=== PATIENT | male | born 2000 | race Caucasian/White ===

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

== ENCOUNTER 2020-08-14 21:23 | Inpatient (IN) ==
[2020-08-14 22:10] LABS: Basophils % 0.5 %; Eosinophils # 0.1 K/mcL (0.0-0.6); Eosinophils % 1.1 %; Hematocrit 40.2 % (37.5-50.1); Hemoglobin 14.1 g/dL (12.9-16.9); Immature Granulocytes % 0.3 % (0-4); Lymphocytes % 31.7 %; Mean Corpuscular HGB Conc 35.1 g/dL (31.6-35.5); Mean Corpuscular Hemoglobin 30.5 pg (28.0-33.3); Mean Platelet Volume 9.6 fL (9.4-12.4); Monocytes # 0.7 K/mcL (0.0-1.3); Monocytes % 10.3 %; Neutrophils # 3.6 K/mcL (1.6-8.9); Platelet Count 268 K/mcL (140-400); Red Blood Count 4.62 M/mcL (4.19-5.50); Segmented Neutrophils % 56.1 %; White Blood Count 6.3 K/mcL (4.3-11.1)
[2020-08-14 22:31] LABS: Acetaminophen < 10 mcg/mL (10-20); BUN/Creatinine Ratio 12 (6-26); Blood Urea Nitrogen 11 mg/dL (6-20); Calcium 9.5 mg/dL (8.6-10.3); Carbon Dioxide 27 mEq/L (23-29); Chloride 107 mEq/L (98-107); Chol/HDL Ratio 3.1 (0-4.9); Cholesterol 119 mg/dL (< 200); Ethanol < 10 mg/dL (Less than 10); Glucose 76 mg/dL (70-105); HDL Cholesterol 38 mg/dL (40-59); LDL Cholesterol,Calculated 66 mg/dL (< 100); Osmolality,Calculated 298 (280-300); Potassium 3.9 mEq/L (3.5-5.1); Salicylate < 2.5 mg/dL (15.0-30.0); Sodium 145 mEq/L (136-145); Triglycerides 75 mg/dL (< 150); eGFR For African Americans > 60; eGFR For Non-African Americans > 60
[2020-08-14 22:54] LABS: Estimated Average Glucose 91 mg/dl; Hemoglobin A1C 4.8 %
[2020-08-14 23:40] LABS: Amphetamine Screen,Urine Negative ng/mL (Cutoff=1000); Barbiturate Screen,Urine Negative ng/mL (Cutoff=200); Benzodiazepines Screen,Urine Negative ng/mL (Cutoff=200); Cannabinoid Screen,Urine Positive ng/mL (Cutoff = 50); Cocaine Screen,Urine Negative ng/mL (Cutoff= 300); Opiate Screen,Urine Negative ng/mL (Cutoff=300); Phencyclidine Screen,Urine Negative ng/mL (Cutoff=25)
[2020-08-14 23:45] LABS: Bacteria,Urine Moderate per hpf (None-Few); Bilirubin,Urine Negative (Negative); Blood,Urine Negative (Negative); Clarity,Urine Ex.Turbid (Clear); Color,Urine Yellow (Yellow); Glucose,Urine (UA) Normal (Normal); Ketones,Urine Negative (Negative); Leukocyte Esterase,Urine Negative (Negative); Mucus,Urine Few per lpf (None-Few); Nitrite,Urine Negative (Negative); PH,Urine 7.5 pH Units (5.0-8.0); Protein,Urine 30 mg/dL (Neg-Trace); Specific Gravity,Urine 1.027 (1.010-1.025)
[2020-08-15 02:48] LABS: Adenovirus Not Detected (Not Detect); Bordetella Pertussis Not Detected (Not Detect); Chlamydophila pneumoniae Not Detected (Not Detect); Coronavirus 229E Not Detected (Not Detect); Coronavirus HKU1 Not Detected (Not Detect); Coronavirus NL63 Not Detected (Not Detect); Coronavirus OC43 Not Detected (Not Detect); Human Metapneumovirus Not Detected (Not Detect); Human Rhinovirus/Enterovirus Not Detected (Not Detect); Influenza A Subtype 2009 H1 Not Detected (Not Detect); Influenza B Not Detected (Not Detect); Mycoplasma pneumoniae Not Detected (Not Detect); Parainfluenza Virus 1 Not Detected (Not Detect); Parainfluenza Virus 2 Not Detected (Not Detect); Parainfluenza Virus 3 Not Detected (Not Detect); Parainfluenza Virus 4 Not Detected (Not Detect); Respiratory Syncytial Virus Not Detected (Not Detect); SARS-CoV-2 Not Detected (Not Detect)
[2020-08-15] MEDS ORDERED: QUEtiapine Fumarate 25 MG TABLET PO PRN (02:51)
[2020-08-15] MEDS ORDERED: Haloperidol Lactate 5 MG/ML VIAL IM PRN (02:51)
[2020-08-15] MEDS ORDERED: haloperidoL 5 MG TABLET PO PRN (02:51)
[2020-08-15] MEDS ORDERED: Acetaminophen 325 MG TABLET PO PRN (02:51)
[2020-08-15] MEDS ORDERED: *HR* LORazepam 2 MG/ML VIAL IM PRN (02:51)
[2020-08-15] MEDS ORDERED: *HR* LORazepam 1 MG TABLET PO PRN (02:51)
[2020-08-15] MEDS ORDERED: hydrOXYzine pamoate 25 MG CAPSULE PO PRN (02:51)
[2020-08-15] MEDS: traZODone 50 MG TABLET PO PRN (20:29)
[2020-08-15] MEDS: lamoTRIgine 25 MG TABLET PO SCH (20:29)
[2020-08-16] MEDS ORDERED: MOM Conc 10 ML UD.LIQ PO PRN (09:47)
[2020-08-16] MEDS ORDERED: Mag Hydrox/Al Hydrox/Simeth 30 ML UDC PO PRN (09:47)
[2020-08-16] MEDS ORDERED: Nicotine 2 MG GUM BC PRN (09:47)
[2020-08-16] MEDS: traZODone 50 MG TABLET PO PRN (20:47)
[2020-08-16] MEDS: lamoTRIgine 25 MG TABLET PO SCH (20:47)
[2020-08-17 09:54] VITALS: BP 103/61
[2020-08-17] MEDS ORDERED: lamoTRIgine 25 MG TABLET PO SCH (21:00)
== END 2020-08-17 12:05 | disposition home or self-care (01) | DRG 885 ==
LOC: EMEROOARM 21:23 → 1ANU 08-15 10:03
PROVIDERS: ADMIT Psychiatry & Neurology Psychiatry; ATTEND Psychiatry & Neurology Psychiatry